=== PATIENT | male | born 1985 | race Caucasian/White ===

== ENCOUNTER 2023-10-21 08:45 | Emergency (ER) | payer OTHER ==
[~2023-10-21] VITALS: Ht 175.3 cm; Wt 113.4 kg
[2023-10-21 08:53] VITALS: BP_SYST 131; PULSE 77; RESP 18; TEMP 97.7; O2SAT 97
[2023-10-21 09:14] LABS: BASOPHILS % (AUTO) 0.8 % (0.0-2.0); EOSINOPHILS # (AUTO) 0.2 K/uL (0.0-0.4); EOSINOPHILS % (AUTO) 3.5 % (0.0-4.0); HEMATOCRIT 42.1 % (36-54); HEMOGLOBIN 14.7 g/dL (14.0-18.0); LYMPHOCYTES # (AUTO) 1.6 K/uL (1.0-5.5); LYMPHOCYTES % (AUTO) 25.3 % (20.5-51.5); MEAN CORPUSCULAR HEMOGLOBIN 31 pg (27-31); MEAN CORPUSCULAR HGB CONC 35 % (32-36); MEAN CORPUSCULAR VOLUME 88 fL (79.0-98.0); MONOCYTES # (AUTO) 0.5 K/uL (0.0-1.0); MONOCYTES % (AUTO) 7.7 % (1.7-9.3); NEUTROPHILS # (AUTO) 3.9 K/uL (1.8-7.7); NEUTROPHILS % (AUTO) 62.7 % (40.0-70.0); PLATELET COUNT (AUTO) 253 K/uL (130-430); RED BLOOD CELL COUNT(AUTO) 4.77 MIL/uL (4.2-6.2); RED CELL DISTRIBUTION WIDTH 13.1 % (9.0-15.0); WHITE BLOOD COUNT (AUTO) 6.2 K/uL (4.8-10.8)
[2023-10-21 09:19] LABS: CREATININE 1.05 mg/dL (0.55-1.30); POTASSIUM 4.2 mmol/L (3.5-5.1)
[2023-10-21] MEDS ORDERED: PRED20TA PO (10:07)
[2023-10-21] MEDS ORDERED: CLIN-142 PO (10:07)
[2023-10-21] MEDS ORDERED: NEOM28.37 TP (10:09)
[2023-10-21] MEDS ORDERED: BACITRACIN 1 GM OINT TP ONE ×2 (10:14→10:18)
[2023-10-21 10:18] VITALS: BP_SYST 131; PULSE 77; RESP 18; TEMP 97.7; O2SAT 97
[2023-10-21] MEDS ORDERED: CLINDAMYCIN HCL 150 MG CAPSULE ONE (10:18)
[2023-10-21] MEDS: CLINDAMYCIN HCL 150 MG CAPSULE PO ONE ×2 (10:21)
[2023-10-21] MEDS: BACITRACIN 1 GM OINT TP ONE (10:21)
== END 2023-10-21 10:13 | disposition home or self-care (01) ==
LOC: SED 08:45 → EDSEX 08:45 → SED 10:13
DX: L03.116 Cellulitis of left lower limb (principal); Z79.899 Other long term (current) drug therapy
CPT/HCPCS: 36415; 80048; 83605; 85025; 99283

== ENCOUNTER 2023-11-01 10:22 | Emergency (ER) | payer OTHER ==
[~2023-11-01] VITALS: Ht 175.3 cm; Wt 113.4 kg
[2023-11-01 10:22] VITALS: BP_SYST 126; PULSE 65; RESP 18; TEMP 97; O2SAT 97
[~2023-11-01 10:22] MED LIST: CLIN-142 PO; NEOM28.37 TP; PRED20TA PO
[2023-11-01 10:51] VITALS: BP_SYST 126; PULSE 65; RESP 18; TEMP 97; O2SAT 97
[2023-11-01] MEDS ORDERED: CEPH-548 PO (10:59)
[2023-11-01] MEDS ORDERED: METH-776 PO (10:59)
[2023-11-01] MEDS ORDERED: HYDC2.5% TP (10:59)
== END 2023-11-01 11:01 | disposition home or self-care (01) ==
LOC: SED 10:22
DX: L03.116 Cellulitis of left lower limb (principal); L25.9 Unspecified contact dermatitis, unspecified cause; Z79.899 Other long term (current) drug therapy
CPT/HCPCS: 99283